=== PATIENT | male | born 1955 | race Hispanic/Latino ===

== ENCOUNTER 2018-05-30 06:03 | Day surgery (SDC) | payer OTHER ==
[2018-05-30] MEDS ORDERED: NACL 0.9% 1000 ML 1,000 ML IV SCH (07:00)
[2018-05-30] MEDS ORDERED: WATER FOR IRRIG STERILE ONE (07:09)
[2018-05-30] MEDS ORDERED: WATER FOR IRRIG STERILE IR ONE (07:09)
[2018-05-30] MEDS ORDERED: DIPRIVAN 10 MG/ML IV ONE ×2 (07:45)
--- NOTE | 2018-05-30 08:19 | Short Stay Summary ---
Short Stay Documentation - Allergies and Medications Current Medications: Allergies No Known Allergies Allergy (Verified 05/29/18 11:19) Home Medications Medication Instructions Recorded Confirmed Last Taken Type AtorvaSTATin 40 mg PO DAILY 05/29/18 05/30/18 05/29/18 History Lisinopril 20 mg PO DAILY 05/29/18 05/30/18 05/29/18 History Pantoprazole 40 mg PO DAILY 05/29/18 05/30/18 05/29/18 History Potassium Citrate 99 mg PO DAILY 05/29/18 05/30/18 05/29/18 History Sertraline 100 mg PO DAILY 05/29/18 05/30/18 05/29/18 History amLODIPine 5 mg PO DAILY 05/29/18 05/30/18 05/29/18 History hydrOXYzine 50 mg PO QID 05/29/18 05/30/18 05/29/18 History Active Medications Sodium Chloride (Nacl 0.9% 1000 Ml) 1,000 mls @ 50 mls/hr IV DIRECT LEONILA Last Admin: 05/30/18 07:23 Dose: 50 mls/hr - Brief post op/procedure progress note Date of procedure: 05/30/18 Pre-op diagnosis: Colon cancer screening Post-op diagnosis: same (1. Very poor prep (unacceptable) 2. Colon polyps 3. Internal hemorrhoids) Procedure: Colonoscopy with cold biopsy polypectomy Anesthesia: MAC Findings: as above Surgeon: MARIE ESCALANTE Estimated blood loss: none Pathology: list (1. Descending colon polyp 2. Ascending colon polyp) Condition: stable - Disposition Condition at discharge: Stable Disposition: DC-01 TO HOME OR SELFCARE Short Stay Discharge Plan Activity: no restrictions Weight Bearing Status: Full Weight Bearing Diet: regular, low fat, low salt Follow up with: SIVA ALVARENGA MD [Primary Care Provider] - 7 Days
[2018-05-30 08:41] VITALS: BP 138/89
--- NOTE | 2018-05-30 09:21 | Anesthesia Consultation ---
Anesthesia Consult and Med Hx Date of service: 05/30/18 - Airway Anesthetic Teeth Evaluation: Good ROM Head & Neck: Adequate Mental/Hyoid Distance: Adequate Mallampati Class: Class II Intubation Access Assessment: Probably Good - Pulmonary Exam CTA: Yes - Cardiac Exam Cardiac Exam: RRR - Pre-Operative Health Status ASA Pre-Surgery Classification: ASA3 Proposed Anesthetic Plan: MAC - Pulmonary Hx Smoking: Yes (former ) - Cardiovascular System Hx Hypertension: Yes Hx Coronary Artery Disease: Yes (2010) Hx Percutaneous Transluminal Coronary Angioplasty (PTCA): Yes (2010) - Gastrointestinal Hx Gastroesophageal Reflux Disease: Yes - Other Systems Hx Substance Use: Yes (MARIJUANA DAILY) Hx Obesity: Yes
--- NOTE | 2018-05-30 09:22 | Anesthesia Day of Surgery ---
Anesthesia Day of Surgery - Day of Surgery Patient Examined: Yes Patient H&P Reviewed: Yes Patient is NPO: Yes
--- NOTE | 2018-05-30 09:22 | Anesthesia Day of Surgery ---
Anesthesia Day of Surgery - Day of Surgery Patient Examined: Yes Patient H&P Reviewed: Yes Patient is NPO: Yes
== END 2018-05-30 06:04 | disposition home or self-care (01) ==
LOC: GIO 06:03
PROVIDERS: ATTEND Internal Medicine Gastroenterology
DX: Z12.11 Encounter for screening for malignant neoplasm of colon (principal); D12.4 Benign neoplasm of descending colon; D12.2 Benign neoplasm of ascending colon; K63.89 Other specified diseases of intestine; K64.8 Other hemorrhoids; I25.10 Atherosclerotic heart disease of native coronary artery without angina pectoris; E78.00 Pure hypercholesterolemia, unspecified; I10 Essential (primary) hypertension; J45.909 Unspecified asthma, uncomplicated; K21.9 Gastro-esophageal reflux disease without esophagitis; F32.9 Major depressive disorder, single episode, unspecified; F41.9 Anxiety disorder, unspecified; E66.9 Obesity, unspecified; Z68.36 Body mass index [BMI] 36.0-36.9, adult; Z98.890 Other specified postprocedural states; Z98.61 Coronary angioplasty status; Z87.891 Personal history of nicotine dependence; Z79.899 Other long term (current) drug therapy; Z79.01 Long term (current) use of anticoagulants
CPT/HCPCS: 45380; 88305; J2704; J7030